=== PATIENT | male | born 1980 | race Caucasian/White ===

== ENCOUNTER 2018-11-23 17:50 | Inpatient (IN) | payer OTHER ==
[~2018-11-23] VITALS: Ht 180.3 cm; Wt 90.3 kg
[2018-11-23 18:28] VITALS: BP 136/84
[2018-11-23 19:30] LABS: ABSOLUTE NEUTROPHILS 4.1 thou/uL (1.4-8.2); BASOPHILS 1.9 % (0.0-2.0); EOSINOPHILS 1.4 % (0.0-3.0); HEMATOCRIT 40.2 % (42.0-52.0); HEMOGLOBIN 14.1 gm/dL (14.0-18.0); MCH 32.5 pg (26.0-34.0); MCV 92.8 fL (80.0-100.0); MONOCYTES 5.4 % (1.0-8.0); POLYS 72.3 % (36.0-66.0); RBC 4.33 mil/uL (4.50-6.00); WBC 5.7 thou/uL (4.0-11.0)
[2018-11-23 19:35] LABS: CREATININE 0.8 mg/dL (0.7-1.3); POTASSIUM 3.8 mmol/L (3.5-5.1)
[2018-11-23 19:40] LABS: APTT 32.6 Seconds (24.5-32.8); INR 1.3; PROTIME 13.8 Seconds (9.3-11.4)
[2018-11-23 19:41] LABS: ALBUMIN 3.5 g/dL (3.4-5.0); DIRECT BILIRUBIN 2.5 mg/dL (<0.1-0.3); MAGNESIUM 1.5 mg/dL (1.8-2.4); PHOSPHORUS 3.1 mg/dL (2.5-4.9); TOTAL BILIRUBIN 4.1 mg/dL (<0.1-1.0); TOTAL PROTEIN 8.5 g/dL (6.4-8.2)
[2018-11-23 19:49] LABS: PLATELET COUNT 68 thou/uL (150-400)
[2018-11-23 20:21] VITALS: BP 116/72
[2018-11-23 20:50] VITALS: BP 111/63
[2018-11-23 21:14] VITALS: BP 135/78
[2018-11-24 03:36] LABS: HEMATOCRIT 36.2 % (42.0-52.0); HEMOGLOBIN 12.7 gm/dL (14.0-18.0)
[2018-11-24 04:20] VITALS: BP 111/54
--- NOTE | 2018-11-24 07:57 | EKG ---
[address] [place] [address] ELECTROCARDIOGRAM REPORT Name: ARTI BROWNING Room #: 203-P ADM IN M.R.#: [id number] Admission: 11/23/18 Attend Phys: Travis Harman MD Discharge: Date of : 76 Report #: [id number] THIS REPORT FOR: //name// [facility] ED Test Date: 2018-11-23 Test Time: 19:06:30 Pat Name: ARTI BROWNING Department: Room: 203 Gender: M Epic Professional[facility] 1980 Requested By: Berlin Alvarez Order Number: [id number] MD: Declan Bender Measurements Intervals [place] Rate: 108 P: 66 RI: 157 QRS: -14 QRSD: 115 T: 51 QT: 354 QTc: 475 Interpretive Statements Sinus tachycardia Incomplete right bundle branch block Baseline wander in lead(s) V5,V6 No previous ECG available for comparison Electronically Signed On 11-24-2018 7:57:37 CDT by Declan Bender [email or web address] <ELECTRONICALLY SIGNED> By: Declan Bender MD, [facility] 11/24/18 0757 05 05 Declan Bender MD, [facility] /EPI
[2018-11-24 08:05] VITALS: BP 125/79
[2018-11-24 11:58] VITALS: BP 114/71
[2018-11-24 12:07] LABS: HEMOGLOBIN 12.8 gm/dL (14.0-18.0)
[2018-11-24 12:09] LABS: HEMATOCRIT 36.6 % (42.0-52.0)
[2018-11-24 12:19] LABS: % SATURATION 81 % (20-39); IRON 234 ug/dL (65-175); TIBC 290 ug/dL (250-450)
[2018-11-24 15:52] VITALS: BP 126/77
[2018-11-24 17:58] LABS: HEMATOCRIT 34.5 % (42.0-52.0)
[2018-11-24 20:06] LABS: IgG 1772 mg/dL (700-1600)
[2018-11-24 20:45] VITALS: BP 122/78
[2018-11-24 23:48] LABS: HEMOGLOBIN 11.9 gm/dL (14.0-18.0)
[2018-11-24 23:50] LABS: HEMATOCRIT 33.6 % (42.0-52.0)
[2018-11-25] VITALS (26 sets, daily range): BP systolic 101–130; BP diastolic 49–85
[2018-11-25 06:18] LABS: HEMOGLOBIN 11.7 gm/dL (14.0-18.0); WBC 4.2 thou/uL (4.0-11.0)
[2018-11-25 06:20] LABS: HEMATOCRIT 33.6 % (42.0-52.0); MCH 32.5 pg (26.0-34.0); MCHC 34.7 g/dL (28.0-37.0); MCV 93.7 fL (80.0-100.0); RBC 3.59 mil/uL (4.50-6.00); RDW 14.9 % (10.5-14.5)
[2018-11-25 06:31] LABS: CREATININE 0.9 mg/dL (0.7-1.3); POTASSIUM 3.4 mmol/L (3.5-5.1)
[2018-11-25 10:11] LABS: HAV IgM AB (ANTI-HAV IgM) Negative (Negative); HEPATITIS B SURFACE AG Negative (Negative); HEPATITIS C VIRUS AB <0.1 (0.0-0.9)
[2018-11-25 12:38] LABS: HEMATOCRIT 31.5 % (42.0-52.0)
[2018-11-25 16:34] LABS: HEMATOCRIT 30.8 % (42.0-52.0); HEMOGLOBIN 10.7 gm/dL (14.0-18.0); MCH 32.8 pg (26.0-34.0); MCHC 34.8 g/dL (28.0-37.0); MCV 94.1 fL (80.0-100.0); RBC 3.28 mil/uL (4.50-6.00); RDW 14.8 % (10.5-14.5); WBC 3.8 thou/uL (4.0-11.0)
[2018-11-25 16:42] LABS: APTT 32.3 Seconds (24.5-32.8); FIBRINOGEN 273.7 mg/dL (210-360)
[2018-11-26] VITALS (28 sets, daily range): BP systolic 90–130; BP diastolic 46–83
[2018-11-26 00:07] LABS: CERULOPLASMIN 21.3 mg/dL (16.0-31.0)
[2018-11-26 03:19] LABS: HEMATOCRIT 29.8 % (42.0-52.0); HEMOGLOBIN 10.5 gm/dL (14.0-18.0); MCH 32.9 pg (26.0-34.0); MCHC 35.2 g/dL (28.0-37.0); MCV 93.7 fL (80.0-100.0); RBC 3.18 mil/uL (4.50-6.00); RDW 14.3 % (10.5-14.5); WBC 4.2 thou/uL (4.0-11.0)
[2018-11-26 03:26] LABS: CALCIUM 8.6 mg/dL (8.5-10.1); CREATININE 0.9 mg/dL (0.7-1.3); POTASSIUM 4.1 mmol/L (3.5-5.1)
[2018-11-26 10:10] LABS: ANA INTERPRETATION Negative (Negative)
[2018-11-27] VITALS (18 sets, daily range): BP systolic 90–119; BP diastolic 32–67
[2018-11-27 04:08] LABS: HEMATOCRIT 29.6 % (42.0-52.0); HEMOGLOBIN 10.3 gm/dL (14.0-18.0); MCH 33.1 pg (26.0-34.0); MCHC 34.7 g/dL (28.0-37.0); MCV 95.3 fL (80.0-100.0); RBC 3.1 mil/uL (4.50-6.00); WBC 4.2 thou/uL (4.0-11.0)
[2018-11-27 04:12] LABS: INR 1.4; PROTIME 14.7 Seconds (9.3-11.4)
[2018-11-27 04:22] LABS: ALBUMIN 2.9 g/dL (3.4-5.0); CALCIUM 8.8 mg/dL (8.5-10.1); CREATININE 0.9 mg/dL (0.7-1.3); POTASSIUM 3.7 mmol/L (3.5-5.1); TOTAL BILIRUBIN 3.5 mg/dL (<0.1-1.0); TOTAL PROTEIN 6.8 g/dL (6.4-8.2)
--- NOTE | 2018-11-27 08:35 | EKG ---
[address] [address] ELECTROCARDIOGRAM REPORT Name: ARTI BROWNING Room #: 242-P ADM IN M.R.#: [id number] Admission: 11/23/18 Attend Phys: Travis Harman MD Discharge: Date of : 76 Report #: [id number] THIS REPORT FOR: //name// [facility] Test Date: 2018-11-26 Test Time: 14:23:32 Pat Name: ARTI BROWNING Department: Room: 242 P Gender: M Bottle Label Inspector: Arleen HARRIS : 1980 Requested By: Travis Harman Order Number: [id number] MD: Elias Mackey Measurements Intervals [place] Rate: 90 P: 52 AR: 150 QRS: -8 QRSD: 121 T: 16 QT: 364 QTc: 446 Interpretive Statements Sinus rhythm Nonspecific intraventricular conduction delay Compared to ECG 11/23/2018 19:06:30 Intraventricular conduction delay now present Sinus tachycardia no longer present Incomplete right bundle-branch block no longer present Electronically Signed On 11-27-2018 8:35:29 CDT by Elias Mackey [email or web address] <ELECTRONICALLY SIGNED> By: Elias Mackey MD 11/27/18 0835 1423 1423 Elias Mackey MD /EPI
[2018-11-27] MEDS ORDERED: PROTONIX 20 MG20 M1 PO (12:16)
--- NOTE | 2018-11-28 08:56 | O ---
[facility] [place] [address] OPERATIVE REPORT Name: ARTI BROWNING Room #: 242-P [facility] IN M.R.#: [id number] Admission: 11/23/18 Attend Phys: Travis Harman MD Discharge: 11/27/18 Date of : 76 Report #: [id number] THIS REPORT FOR: //name// CC: GARCÍA physician/PCP Travis Harman DATE OF SERVICE: 11/25/2018 PROCEDURE NOTE: The right naris was anesthetized with Pontocaine topical anesthesia. The flexible nasopharyngeal scope was advanced through the nares into the nasopharynx, oropharynx, and upper hypopharynx. It was then withdrawn after viewing structures. The nasal cavity was unremarkable. There was no active bleeding noted within the naris or the nasopharynx. The nasopharyngeal mucosa was unremarkable. The lateral and posterior pharyngeal trujillo are unremarkable. Base of tongue, vallecula, surfaces of the epiglottis, piriform sinuses, post-cricoid area were all unremarkable. True vocal cords were normal and moved normally. Only bleeding was noted was dripping down from the oral cavity. The scope was withdrawn. The patient tolerated the procedure well. <ELECTRONICALLY SIGNED> By: Eugene Wall MD 11/28/18 0856 1347 2252 Eugene Wall MD /nt
--- NOTE | 2018-11-28 08:56 | HC ---
[facility] [place] [address] CONSULTATION Name: ARTI BROWNING Room #: 242-P [facility] IN M.R.#: [id number] Admission: 11/23/18 Attend Phys: Travis Harman MD Discharge: 11/27/18 Date of : 76 Report #: [id number] THIS REPORT FOR: //name// CC: GARCÍA physician/PCP Travis Harman DATE OF SERVICE: 11/25/2018 REASON FOR CONSULTATION: Oral bleeding. HISTORY OF PRESENT ILLNESS: The patient is a 38-year-old male who presented to the Emergency Department on 11/23 for spontaneous bleeding from the gums and tremors secondary to alcohol detoxification attempt. He was admitted to the hospital for admission for detoxification and laboratory care. The patient has not had any substantial oral/dental history. He no longer uses tobacco products. He had significant hematemesis and melanotic stool with elevated liver enzymes. Concern was for alcoholic hepatitis. Also, he was noted to have an elevated INR and thrombocytopenia. An EGD was planned for today to evaluate the esophagus and stomach. EGD procedure noted there was fresh blood in the oral cavity as well as fresh blood in the esophagus, stomach and small bowel; however, there was no active bleeding noted in the upper digestive tract. He had large esophageal varices that were banded and had portal hypertensive gastropathy as well. Because of the ongoing oropharyngeal bleeding, I was consulted. It should be noted the patient denies any history of epistaxis, previous history of dental trauma and any difficulty with controlling oral secretions. PAST MEDICAL HISTORY: Notable for alcohol withdrawal. ALLERGIES: He has no known allergies to medication. LABORATORY DATA: Admitting laboratory tests showed a slightly elevated INR. Hemoglobin was 14.1, hematocrit of 40.2, platelet count was 68,000 on admission. PAST SURGICAL HISTORY: Otherwise, unremarkable aside from excessive alcohol use. PHYSICAL EXAMINATION: I examined in the ICU in a semi-reclining position. There was fresh blood on his lips. Nasal cannula was intact. Examination of the remainder of the head was unremarkable. Hairs were unremarkable. Anterior nares reveal a moderately deviated nasal septum. Nasal mucosa was dry; however, there were no blood clots noted. Oral cavity revealed multiple hemorrhaging spots from the gingiva throughout the upper and lower gingiva on the buccal surfaces mostly. There was some clotting taking place. There were some hematomas located on the buccal mucosa as well. The floor of mouth and the ventral and dorsal surface and lateral surface of the tongue were unremarkable. [address] [address] CONSULTATION Name: ARTI BROWNING Room #: 242-P [facility] IN [facility]#: [id number] Admission: 11/23/18 Attend Phys: Travis Harman MD Discharge: 11/27/18 Date of : 76 Report #: [id number] The oropharynx appears unremarkable for any active bleeding. Neck palpates unremarkably. Flexible nasopharyngoscopy was performed after anesthetizing the right naris. See separate procedure report. ASSESSMENT: 1. History of oral bleeding from continued gingival bleeding secondary to thrombocytopenia. 2. Alcohol withdrawal. 3. Esophageal varices. 4. Elevated liver function tests. RECOMMENDATIONS: Would recommend correcting for the coagulopathy with platelet counts trying to keep platelet counts greater than 100,000 if possible, expect spontaneous gingival bleeding to persist until that is achieved (it should be noted platelet count today is 41,000). The hospital does not carry tranexamic acid solution, which can be used to stop gingival and oral bleeding. Unfortunately, there is no known substitute in place of this. He should be using some general oral care, which would include the Peridex or chlorhexidine rinses, 50 mL 3 times a day to promote better oral hygiene and promote healing of the gingival lesions. Post-hospitalization followup with a dentist or an oral surgeon to improve oral health would be beneficial. I did reach out to his hospitalist but was unable to reach them today to discuss my conclusions. I will follow along loosely with you. <ELECTRONICALLY SIGNED> By: Eugene Wall MD 11/28/18 0856 1347 2241 Eugene Wall MD /nt
== END 2018-11-27 15:30 | disposition home or self-care (01) | DRG 157 ==
LOC: ER 17:50 → 2N 19:59 → EROBS 19:59 → 2N 20:59 → ICU 11-25 11:12
PROVIDERS: Emergency Medicine; Hospitalist; Internal Medicine Hematology & Oncology; Nurse Practitioner; Nurse Practitioner Acute Care; ADMIT Hospitalist
PROC: 30233R1 Transfusion of Nonautologous Platelets into Peripheral Vein, Percutaneous Approach (ICD-10-PCS; principal; 2018-11-25)
PROC: 06L38CZ Occlusion of Esophageal Vein with Extraluminal Device, Via Natural or Artificial Opening Endoscopic (ICD-10-PCS; principal; 2018-11-25)
DX: K06.8 Other specified disorders of gingiva and edentulous alveolar ridge (principal); I85.01 Esophageal varices with bleeding; D62 Acute posthemorrhagic anemia; K76.6 Portal hypertension; K92.0 Hematemesis; E83.42 Hypomagnesemia; F10.10 Alcohol abuse, uncomplicated; D69.6 Thrombocytopenia, unspecified; K70.9 Alcoholic liver disease, unspecified; T50.995A Adverse effect of other drugs, medicaments and biological substances, initial encounter; T51.0X1A Toxic effect of ethanol, accidental (unintentional), initial encounter; K74.60 Unspecified cirrhosis of liver; J39.2 Other diseases of pharynx; Y92.89 Other specified places as the place of occurrence of the external cause; Z87.891 Personal history of nicotine dependence; Z79.899 Other long term (current) drug therapy
CPT/HCPCS: 10078; 10081; 62110; 62900; 70005; 85076

== ENCOUNTER 2019-04-07 17:53 | Emergency (ER) | payer MEDICAID ==
[~2019-04-07] VITALS: Ht 180.3 cm; Wt 85.7 kg
[~2019-04-07 17:53] MED LIST: PROTONIX 20 MG20 M1 PO
[2019-04-07 20:55] LABS: ABSOLUTE NEUTROPHILS 3.7 thou/uL (1.4-8.2); BASOPHILS 3.2 % (0.0-2.0); EOSINOPHILS 2.7 % (0.0-3.0); LYMPHOCYTES 32.3 % (24.0-44.0); MCH 29.9 pg (26.0-34.0); MCHC 33.3 g/dL (28.0-37.0); MONOCYTES 5.2 % (1.0-8.0); PLATELET COUNT 118 thou/uL (150-400); POLYS 56.6 % (36.0-66.0); RBC 4.33 mil/uL (4.50-6.00); RDW 15.9 % (10.5-14.5); WBC 6.5 thou/uL (4.0-11.0)
[2019-04-07 21:09] LABS: CALCIUM 8.9 mg/dL (8.5-10.1); CREATININE 0.8 mg/dL (0.7-1.3); POTASSIUM 3.6 mmol/L (3.5-5.1)
[2019-04-07 21:15] LABS: ALBUMIN 3.6 g/dL (3.4-5.0); DIRECT BILIRUBIN 1.8 mg/dL (<0.1-0.2); MAGNESIUM 1.9 mg/dL (1.8-2.4); PHOSPHORUS 4.2 mg/dL (2.5-4.9); TOTAL BILIRUBIN 2.8 mg/dL (<0.1-1.0)
[2019-04-07] MEDS ORDERED: CHLORDIAZEPOXID25 M1 PO (23:46)
[2019-04-07] MEDS ORDERED: PHENERGAN 25 MG25 M1 PO (23:46)
[2019-04-08 00:03] VITALS: BP 118/64
== END 2019-04-08 00:04 | disposition home or self-care (01) ==
LOC: ER 17:53
PROVIDERS: Emergency Medicine
DX: F10.10 Alcohol abuse, uncomplicated (principal); F17.210 Nicotine dependence, cigarettes, uncomplicated

== ENCOUNTER 2020-06-28 20:54 | Inpatient (IN) | payer MEDICAID ==
[~2020-06-28] VITALS: Ht 180.3 cm; Wt 80.7 kg
[~2020-06-28 20:54] MED LIST changes: +CHLORDIAZEPOXID25 M1 PO; +PHENERGAN 25 MG25 M1 PO
[2020-06-28 21:10] VITALS: BP 121/71
[2020-06-28 21:56] LABS: HEMOGLOBIN 12.6 gm/dL (14.0-18.0); RDW 22.1 % (10.5-14.5)
[2020-06-28 21:56] LABS: URINE BILIRUBIN 3+ (Negative); URINE BLOOD 2+ (Negative); URINE CLARITY SL CLOUDY; URINE COLOR BROWN; URINE GLUCOSE-RANDOM* TRACE (Negative); URINE KETONES 2+ (Negative); URINE LEUKOCYTES-REFLEX NEGATIVE (Negative); URINE PROTEIN (DIPSTICK) 2+ (Negative); URINE UROBILINOGEN >= 8.0 E.U./dl (0.2-1.0)
[2020-06-28 21:58] LABS: ABSOLUTE NEUTROPHILS 2.3 thou/uL (1.4-8.2); BASOPHILS 1.7 % (0.0-2.0); EOSINOPHILS 1.4 % (0.0-3.0); HEMATOCRIT 37.2 % (42.0-52.0); LYMPHOCYTES 13.3 % (24.0-44.0); MCH 32.6 pg (26.0-34.0); MCHC 33.9 g/dL (28.0-37.0); MCV 96.1 fL (80.0-100.0); MONOCYTES 15.4 % (1.0-8.0); PLATELET COUNT 42 thou/uL (150-400); POLYS 68.2 % (36.0-66.0); RBC 3.87 mil/uL (4.50-6.00); WBC 3.4 thou/uL (4.0-11.0)
[2020-06-28 22:01] LABS: URINE NITRITE-REFLEX POSITIVE (Negative)
[2020-06-28 22:05] LABS: ICTOTEST (BILI CONFIRMATORY) Positive (Negative)
[2020-06-28 22:11] LABS: ANION GAP 14 mmol/L (7-16); BUN 3 mg/dL (7-18); CALCIUM 8.8 mg/dL (8.5-10.1); CHLORIDE 93 mmol/L (98-107); CO2 27 mmol/L (21-32); CREATININE 0.9 mg/dL (0.7-1.3); GLUCOSE 115 mg/dL (74-106); LIPASE 310 U/L (73-393); POTASSIUM 2.7 mmol/L (3.5-5.1); SGOT 226 U/L (15-37); SGPT 55 U/L (16-63); SODIUM 134 mmol/L (136-145); TOTAL BILIRUBIN 13.8 mg/dL (0.2-1.0); TOTAL PROTEIN 8.1 g/dL (6.4-8.2)
[2020-06-28 22:12] LABS: SALICYLATE < 2.0 mg/dL (2.8-20.0)
[2020-06-28 22:14] LABS: APTT 30.1 Seconds (24.5-32.8); INR 1.59
[2020-06-28 22:17] LABS: CASTS None Seen /LPF (None Seen); MUCUS 4-6 Moderate strn/LPF (None Seen); SQUAMOUS None Seen /LPF (0-3)
[2020-06-28 22:18] LABS: URINE RBC 3-10 Few /HPF (0-2); URINE WBC-REFLEX 0-5 Rare /HPF (0-5)
[2020-06-28 22:19] LABS: CRYSTALS None Seen /LPF (None Seen)
[2020-06-28 22:27] LABS: AMP/METHAMP Negative (Negative); BARBITURATES Negative (Negative); BENZODIAZEPINES POSITIVE (Negative); COCAINE Negative (Negative); METHADONE Negative (Negative); OPIATES Negative (Negative); PCP Negative (Negative)
[2020-06-28 23:07] VITALS: BP 121/71
[2020-06-29] VITALS (15 sets, daily range): BP systolic 90–122; BP diastolic 52–79
--- NOTE | 2020-06-29 01:57 | NUR ---
PATIENT IS A NEW ADMISSION TO THE UNIT THIS SHIFT. HE ARRIVED VIA CART FROM THE ER AND WAS ABLE TO AMBULATE TO THE BED WITH ASSISTANCE INCIDENT FREE. PATIENT IS ALERT AND ORIENTED AND ABLE TO PARTICIPATE IN ADMISSION. INITIAL CIWA SCORED AT FOUR PRIMARILY FOR MILD TREMOR AND NAUSEA. PATIENT WAS TEARFUL AND STATED MULTIPLE TIMES THAT HE "WANTS TO QUIT DRINKING." PATIENT IS NORMAL SINUS RHYTHM ON THE MONITOR WITH NO DIFFICULTIES BREATHING EVIDENCED BY ASSESSMENT AND OXYGEN SATURATION ON ADMISSION. PATIENT CONSIDERED A HIGH FALL RISK WITH NURSE TAKING ALL PRECAUTIONS. NURSE TO COMPLETE ADMISSION AND INITIATE PLAN OF CARE.
[2020-06-29 05:10] LABS: ALBUMIN 2.5 g/dL (3.4-5.0); CREATININE 0.9 mg/dL (0.7-1.3); TOTAL BILIRUBIN 11.7 mg/dL (0.2-1.0); TOTAL PROTEIN 6.6 g/dL (6.4-8.2)
[2020-06-29 05:25] LABS: WBC 2.5 thou/uL (4.0-11.0)
[2020-06-29 05:27] LABS: POTASSIUM 2.9 mmol/L (3.5-5.1)
[2020-06-29 05:33] LABS: HEMATOCRIT 32.2 % (42.0-52.0); HEMOGLOBIN 10.9 gm/dL (14.0-18.0); MCH 32.7 pg (26.0-34.0); MCHC 33.8 g/dL (28.0-37.0); MCV 96.8 fL (80.0-100.0); PLATELET COUNT 33 thou/uL (150-400); RBC 3.32 mil/uL (4.50-6.00); RDW 21.9 % (10.5-14.5)
--- NOTE | 2020-06-29 07:41 | EKG ---
[address] [employer] [place] [address] ELECTROCARDIOGRAM REPORT Name: ARTI BROWNING Room #: 204-P ADM IN M.R.#: [id number] Admission: 06/28/20 Attend Phys: Pieter Moore Discharge: Date of : 76 Report #: [id number] [facility] ED Test Date: 2020-06-28 Test Time: 21:57:29 Pat Name: ARTI BROWNING Department: Room: 204 Gender: M Flux Tube Attendant: molly : 1980 Requested By: Javier Rodriguez Order Number: [id number] MD: Cm Dougherty Measurements Intervals [place] Rate: 95 P: 46 WI: 170 QRS: -19 QRSD: 130 T: 53 QT: 381 QTc: 479 Interpretive Statements Sinus rhythm Nonspecific intraventricular conduction delay Borderline ST depression, anterolateral leads Compared to ECG 11/26/2018 14:23:32 ST (T wave) deviation now present Electronically Signed On 06-29-2020 7:41:33 CDT by Cm Dougherty [email or web address] <ELECTRONICALLY SIGNED> By: Cm Dougherty MD, [facility] 06/29/20 0741 56 56 Cm Dougherty MD, FACC /EPI
--- NOTE | 2020-06-29 08:53 | NUR ---
ASSUMED PT CARE AT 0700. PT RESTING AT THIS TIME. ASSESSMENT PERFORMED. DR SCHAEFFER CAME TO VISIT PATIENT. STATES HE WILL BE TRANSFERRING TO THE ICU AND WOULD LIKE TO TALK TO THE FIANCE AND THE PATIENT TODAY. THE PATIENT CONTACTED THE ANCE AND THE ANCE STATES SHE WILL BE HERE LATER IN THE MORNING. VSS. WILL CONTINUE TO MONITOR.
--- NOTE | 2020-06-29 09:32 | NUR ---
CALLED REPORT TO MAMTA IN ICU. PT WILL BE TRANSFERRING TO ROOM 236.
[2020-06-29 11:27] LABS: ABSOLUTE NEUTROPHILS 1.6 thou/uL (1.4-8.2); NUCLEATED RBCS 1 /100WBC
[2020-06-29 11:29] LABS: ANISOCYTOSIS 1+; HYPOCHROMASIA SLIGHT; PLATELET ESTIMATE MARKEDLY DECREASED; POIKILOCYTOSIS SLIGHT
--- NOTE | 2020-06-29 12:50 | NUR ---
PATIENT ARRIVED IN ICU AT 1020. PATIENT ACCOMPANIED BY AND BELONGINGS.
[2020-06-30] VITALS (15 sets, daily range): BP systolic 88–111; BP diastolic 51–75
[2020-06-30 05:38] LABS: INR 1.64; PROTIME 17.5 Seconds (9.3-11.4)
[2020-06-30 05:44] LABS: HEMATOCRIT 34.7 % (42.0-52.0); HEMOGLOBIN 11.5 gm/dL (14.0-18.0)
[2020-06-30 05:56] LABS: ALBUMIN 2.4 g/dL (3.4-5.0); CALCIUM 7.4 mg/dL (8.5-10.1); CREATININE 0.9 mg/dL (0.7-1.3); POTASSIUM 3.6 mmol/L (3.5-5.1); TOTAL BILIRUBIN 12.5 mg/dL (0.2-1.0); TOTAL PROTEIN 6.6 g/dL (6.4-8.2)
--- NOTE | 2020-06-30 13:05 | NUR ---
chart review. discussed during los. gi consulted and going to scope today. cm unable to visit ricardo rt out off room. cm called sig other amena # [phone] , no answer, left message requesting call back. possible needs for ethol abuse. noted in chart resources have been provided to him on past admission.
[2020-07-01] VITALS (20 sets, daily range): BP systolic 95–116; BP diastolic 52–79
[2020-07-01 05:21] LABS: HEMOGLOBIN 11.1 gm/dL (14.0-18.0); WBC 2.7 thou/uL (4.0-11.0)
[2020-07-01 05:22] LABS: HEMATOCRIT 33.5 % (42.0-52.0); MCH 32.8 pg (26.0-34.0); MCHC 33.1 g/dL (28.0-37.0); RBC 3.38 mil/uL (4.50-6.00); RDW 22.2 % (10.5-14.5)
[2020-07-01 05:37] LABS: ALBUMIN 2.2 g/dL (3.4-5.0); CALCIUM 7.2 mg/dL (8.5-10.1); CREATININE 0.8 mg/dL (0.7-1.3); MAGNESIUM 1.3 mg/dL (1.8-2.4); POTASSIUM 3.5 mmol/L (3.5-5.1); TOTAL PROTEIN 6.3 g/dL (6.4-8.2)
[2020-07-01 10:40] LABS: CALCIUM 7.4 mg/dL (8.5-10.1); CREATININE 0.9 mg/dL (0.7-1.3); MAGNESIUM 1.4 mg/dL (1.8-2.4); POTASSIUM 3.5 mmol/L (3.5-5.1)
--- NOTE | 2020-07-01 12:26 | NUR ---
chart review. discussed during los, possible transfer out of icu. cm provided list of resources on his dc paper work for when he is dc home. cm called amena again, left message, no call back. Resources, [facility], [facility], [facility], [facility], [facility], [facility], [facility] [place] [facility] and [facility]. dcp home with
--- NOTE | 2020-07-01 15:09 | NUR ---
FAXED CLINICAL UPDATES AND NEGATIVE COVID RESULT (06/29) TO NICOLA[facility]REGGIE. NICOLA/REGG[facility] P [phone]; FAX [phone]
--- NOTE | 2020-07-01 18:10 | NUR ---
ASSUMED PATIENT CARE AT 0700. OXYGEN WEANED TO 2L VIA NC. IV MEDICATIONS STOPPED PER ORDERS. PATIENT DID NOT REQUIRE ANY PRN MEDICATIONS PER [facility] PROTOCOL. CHEST XR COMPLETED D/T REPORT OF EPIGASTRIC PAIN. DIET ADVANCED, POOR APPETITE. PATIENT UPDATING BY PERSONAL PHONE. WILL CONTINUE TO MONITOR.
[2020-07-02 03:19] LABS: HEMATOCRIT 35.5 % (42.0-52.0); HEMOGLOBIN 11.6 gm/dL (14.0-18.0); MCH 32.5 pg (26.0-34.0); MCHC 32.6 g/dL (28.0-37.0); MCV 99.4 fL (80.0-100.0); RBC 3.57 mil/uL (4.50-6.00); RDW 21.6 % (10.5-14.5); WBC 3.3 thou/uL (4.0-11.0)
[2020-07-02 03:25] LABS: INR 1.8; PROTIME 19.1 Seconds (9.3-11.4)
--- NOTE | 2020-07-02 03:48 | NUR ---
Pt was a transfer from ICU. Pt is stable upon transfer. No sign of distress noted in pt. Pt denies pain at the moment. Pt is stable upon arrival to the floor. No acute events noted. Black tarry stools noted with bowel movement. Denies any pain. no acute events overnight. Continue to monitor. No further needs at this time.
[2020-07-02 04:04] LABS: ALBUMIN 2.3 g/dL (3.4-5.0); CALCIUM 7.9 mg/dL (8.5-10.1); CREATININE 0.8 mg/dL (0.7-1.3); PHOSPHORUS 1.2 mg/dL (2.6-4.7); POTASSIUM 3.7 mmol/L (3.5-5.1)
[2020-07-02 04:16] LABS: ALBUMIN 2.3 g/dL (3.4-5.0); DIRECT BILIRUBIN 12.9 mg/dL (<0.1-0.2); TOTAL PROTEIN 6.5 g/dL (6.4-8.2)
[2020-07-02 04:22] LABS: TOTAL BILIRUBIN 16.5 mg/dL (0.2-1.0)
[2020-07-02 05:36] VITALS: BP 107/72
[2020-07-02 07:30] VITALS: BP 108/66
[2020-07-02 11:29] VITALS: BP 101/60
[2020-07-02 15:04] VITALS: BP 115/69
--- NOTE | 2020-07-02 16:31 | NUR ---
CT REPORT CALLED TO DR BRISCOE WITH G.I.
[2020-07-02 19:20] VITALS: BP 98/59
[2020-07-03] VITALS (8 sets, daily range): BP systolic 89–108; BP diastolic 52–70
[2020-07-03 03:38] LABS: INR 1.98; PROTIME 20.9 Seconds (9.3-11.4)
[2020-07-03 03:49] LABS: ALBUMIN 2.2 g/dL (3.4-5.0); CALCIUM 8.5 mg/dL (8.5-10.1); CREATININE 0.8 mg/dL (0.7-1.3); MAGNESIUM 1.8 mg/dL (1.8-2.4); POTASSIUM 3.5 mmol/L (3.5-5.1); TOTAL PROTEIN 6.3 g/dL (6.4-8.2)
[2020-07-03 03:51] LABS: TOTAL BILIRUBIN 18.2 mg/dL (0.2-1.0)
--- NOTE | 2020-07-03 07:26 | NUR ---
ASSESSMENTS CHARTED, MEDS CHARTED GIVEN. PATIENT RESTING IN BED DURING SHIFT. C/O PAIN WITH MOVEMENT 10/10, BUT WHEN STILL 2/10. PATIENT IS GETTING LACTOLOSE TO BRING DOWN HIS AMMONIA LEVEL. PATIENT WAS REEDUCATED TO WHY HE NEEDED TO GET IT. HE HATES THAT HE IS INCONTINENT OF BOWEL. JAUNDICE. PLAN IS TO AVOLID NARCOTICS, CONSIDER STEROIDS, DETOX AND AA. FALL PRECAUTIONS IN PLACE DURING SHIFT.
--- NOTE | 2020-07-03 16:29 | NUR ---
PT CARE ASSUMED AT 0700. ASSESSMENTS CHARTED. MEDICATIONS CHARTED. LAC IV. RFA IV. SINUS RHYTHM. BSC/URINAL. JAUNDICE. ESOPHAGEAL VARICES, BANDED. ESLD.
--- NOTE | 2020-07-04 03:08 | NUR ---
ASSESSMENTS CHARTED, MEDS CHARTED GIVEN. PATIENT RESTING IN BED DURING SHIFT. STATES PAIN LEVELS ARE GETTING BETTER. IT HURTS LESS TO MOVE. CONTINUING ON ANTIBIOTIC THERAPY. PLAN OF CARE IS TO CONTINUE TO AGGRESSIVE THERAPY AND HAVE PATIENT CONTINUE TO DETOX AND START AA. FALL PRECAUTIONS IN PLACE DURING SHIFT.
[2020-07-04 03:29] LABS: ALBUMIN 2.1 g/dL (3.4-5.0); CALCIUM 8.3 mg/dL (8.5-10.1); CREATININE 0.9 mg/dL (0.7-1.3); POTASSIUM 3.5 mmol/L (3.5-5.1); TOTAL BILIRUBIN 18.7 mg/dL (0.2-1.0); TOTAL PROTEIN 6.3 g/dL (6.4-8.2)
[2020-07-04 04:15] VITALS: BP 92/60
[2020-07-04 08:04] VITALS: BP 101/65
[2020-07-04 11:26] VITALS: BP 100/67
[2020-07-04 15:46] VITALS: BP 99/61
--- NOTE | 2020-07-04 16:06 | PATH ---
[facility] [address] [place] [address] PATHOLOGY RPT PROCEDURE Name: ARTI LOJA Room #: 208-P ADM IN M.R.#: [id number] Admission: 06/28/20 Date of : 76 Discharge: Report #: [id number] Path Case #: [id number] [facility] Accession Number: [id number] . 01 Material submitted: . stomach - BIOPSY OF GASTRITIS . 01 Clinical history: . MELENE . R/O H.PYLORI . 02 Diagnosis: Gastric mucosa, gastritis rule out H. pylori, endoscopic biopsy: - Mild chronic gastritis with features of reactive gastropathy. - Negative for intestinal metaplasia or atrophy. - Negative for Helicobacter pylori (properly controlled immunohistochemical stain performed). (IUV/db; 07/04/2020) LBQ 07/04/2020 1408 Local . 02 Electronically signed: . Jessenia Boles MD, Pathologist NPI- [id number] . 01 Gross description: . Received in formalin labeled "Arti Loja, biopsy of gastritis rule H. pylori" is a fragment of nogueira-brown soft tissue measuring 0.7 x 0.4 x 0.3 cm. The specimen is submitted entirely in A1. ([facility]; 07/01/2020) . . GZA/GZA 07/01/2020 1107 Local . 02 Pathologist provided ICD-10: K29.50 . 02 CPT . 540990, [id number] Specimen Comment: A courtesy copy of this report has been sent to [phone] Specimen Comment: 2007 Specimen Comment: Report sent to / DR BECERRA Performed at: [address] [id number] MD Raza Womack MD Phone: [phone] Performed at: [address] [address] PATHOLOGY RPT PROCEDURE Name: ARTI LOJA Room #: 208-P [facility] IN ..#: [id number] Admission: 06/28/20 Date of : 76 Discharge: Report #: [id number] Path Case #: [id number] [address] [id number] MD Jessenia Boles MD Phone: [phone]
--- NOTE | 2020-07-04 18:33 | NUR ---
ASSUMED CARE OF PT AT SHIFT CHANGE. ASSESSMENTS CHARTED. MEDS GIVEN PER MAY. PT A&OX4, NO C/O PAIN OR DISTRESS. AT BEDSIDE IN AFTERNOON, COUPLE TALKED TO DR WITH QUESTIONS. WILL CONTINUE TO MONITOR FOR CHANGES AND FOLLOW POC.
[2020-07-04 20:15] VITALS: BP 101/65
--- NOTE | 2020-07-05 01:49 | NUR ---
ASSESSMENTS CHARTED, MEDS CHARTED GIVEN. PATIENT REFUSED THE LACTOLOSE. STATED THAT HE WANTS TO TALK TO THE DOCTOR ABOUT HOW NECESSARY IT IS IF HE IS ONLY GOING TO LIVE 3 MONTHS. DOCTOR STATED HIS PLAN IS TO GO HOME ON HOSPICE. FALL PRECAUTIONS IN PLACE DURING SHIFT.
[2020-07-05 04:45] VITALS: BP 93/60
[2020-07-05 04:55] LABS: HEMATOCRIT 35.1 % (42.0-52.0); HEMOGLOBIN 11.7 gm/dL (14.0-18.0); MCH 33.4 pg (26.0-34.0); MCHC 33.5 g/dL (28.0-37.0); MCV 99.8 fL (80.0-100.0); RBC 3.51 mil/uL (4.50-6.00); RDW 22.3 % (10.5-14.5); WBC 4.2 thou/uL (4.0-11.0)
[2020-07-05 05:23] LABS: ALBUMIN 2.1 g/dL (3.4-5.0); CREATININE 0.9 mg/dL (0.7-1.3); MAGNESIUM 1.9 mg/dL (1.8-2.4); POTASSIUM 3.3 mmol/L (3.5-5.1); TOTAL BILIRUBIN 18.1 mg/dL (0.2-1.0); TOTAL PROTEIN 6.1 g/dL (6.4-8.2)
[2020-07-05 08:00] VITALS: BP 100/59
[2020-07-05 11:32] VITALS: BP 108/65
--- NOTE | 2020-07-05 12:43 | NUR ---
spoke with patient regarding hospice services. He requests caset return today at 1530 when present. He reports she works at [employer] and familiar with hospice agencies.
--- NOTE | 2020-07-05 14:20 | NUR ---
Nutrition: pt admitted with ETOH withdrawal, hemoptysis, melena, ESLD. Hx esophageal varices. Seen for LOS. PO intake variable from 25-90% of meals on 2 gm Na diet. Plan to D/C with hospice ?07/06 per nsg. CM met with pt today and plan additional visit with this afternoon. Pt's door was shut and RD did not disturb pt. Consider low risk with POC considered.
[2020-07-05 15:51] VITALS: BP 116/71
--- NOTE | 2020-07-05 17:02 | NUR ---
FAXED REFERRAL TO HEALTH SYSTEM RECEIVED CONFIRMATION LEFT MSG WITH INTAKE TO CALL GABINO KLINE IF ANY QUESTIONS.
--- NOTE | 2020-07-05 17:58 | NUR ---
RECEIVED PT'S CARE AROUND 0710; PT. ON BED; ALERT; DURING AM ASSESSMENT AOX4; NO C/O PAIN; AM MEDICATIONS GIVEN; REFUSED LATULOSE IN THE AM; ST. "I WILL TALK WITH MY DOCTOR"; PHOTO MASK CLEANER [facility]; EDUCATED ABOUT FALL PRECAUTIONS; [facility]; MIKE SUPERVISOR REACTOR FUELING NOTIFIED ABOUT PT. REFUSING LACTULOSE; NO NEW ORDERS; SR ON THE MONITOR; ASSESSMENT CHARGED; FOLLOWING POC; WILL PASS ON REPORT;
[2020-07-05 20:15] VITALS: BP 99/62
[2020-07-06 04:45] VITALS: BP 91/55
[2020-07-06 05:07] LABS: INR 1.82; PROTIME 19.3 Seconds (9.3-11.4)
[2020-07-06 05:36] LABS: ALBUMIN 2.1 g/dL (3.4-5.0); CALCIUM 8.4 mg/dL (8.5-10.1); CREATININE 0.9 mg/dL (0.7-1.3); POTASSIUM 3.5 mmol/L (3.5-5.1); TOTAL BILIRUBIN 16.8 mg/dL (0.2-1.0); TOTAL PROTEIN 6.4 g/dL (6.4-8.2)
--- NOTE | 2020-07-06 05:40 | NUR ---
ASSESSMENTS CHARTED, MEDS CHARTED GIVEN. PATIENT RESTING IN BED DURING SHIFT. TOOK LACTOLOSE AND WAS INCONTINENT OF BOWEL. PLAN IS FOR PATIENT TO DISCHARGE ON HOSPICE TODAY. FALL PRECAUTIONS IN PLACE DURING SHIFT.
[2020-07-06] MEDS ORDERED: PROPRANOLOL 1010 MG PO (07:55)
[2020-07-06] MEDS ORDERED: ALDACTONE50 MG PO (07:56)
[2020-07-06] MEDS ORDERED: LACTULOSE20 GM/30 M PO (07:56)
[2020-07-06] MEDS ORDERED: VITAMIN B-1100 M2 PO (07:57)
[2020-07-06] MEDS ORDERED: PREDNISONE 20 M20 M1 PO (07:57)
[2020-07-06] MEDS ORDERED: LASIX 40 MG TAB40 M1 PO (07:57)
[2020-07-06] MEDS ORDERED: PROTONIX 20 MG20 M1 PO (07:57)
[2020-07-06 08:00] VITALS: BP 95/60
[2020-07-06] MEDS ORDERED: AUGMENTIN 875-1 EACH PO (08:01)
[2020-07-06] MEDS ORDERED: XANAX 0.5 MG0.5 M1 PO (08:01)
[2020-07-06 11:10] VITALS: BP 88/53
--- NOTE | 2020-07-06 13:14 | NUR ---
RECEIVED PT'S CARE AROUND 0725; PT. ON BED; ALERT; SR ON THE MONITOR; DURING AM ASSESSMENT PT. AOX4; NO C/O PAIN; AM MEDICATIONS GIVEN; REFUSED LACTULOSE; D/C ORDERS ON PLACED; EDUCATED ABOUT D/C PROCESS; [facility] UNDERSTANDING; PT. ST. GET OFF FROM WORK AROUND 1430; ST. WILL BE ABLE TO PICK HIM UP AROUND 1530; [facility]MAN UNDERSTANDING; D/C SET UP AT 1530; MECHANICAL MAINTENANCE SUPERVISOR NOTIFIED; PER MIKE [facility]ANKLIN GI RECOMMEND FOR PT. TO GO TO INPATIENT REHAB TO IMPROVE; ST. NOTIFYING DR. SCHAEFFER; MECHANICAL MAINTENANCE SUPERVISOR AWARE; SBP ON THE 80s; BP MEDICATION HOLD; ASSESSMENT CHARGED; FOLLOWING POC; WILL WORK ON D/C PAPERS;
[2020-07-06 13:20] VITALS: BP 116/77
--- NOTE | 2020-07-06 14:52 | NUR ---
[facility] at [facility]. Left message with Jasson Salguero with patient no preference for hospice agency. Referral to [facility]. THey are no in network with ins. They report [facility] in network. referral to [facility]. Sreedhar sp with Stephany. plan home with hospice. Frank has no PCP jelly maker will follow. Patient to f.u with GI clinic. Orders for lab draws for home via site lead. Sp with Kerri at [facility] who reports can accomadate. to transport home. Orders faxed to [facility]. No further needs.
== END 2020-07-06 15:44 | disposition hospice, home (50) | DRG 432 ==
LOC: ER 20:54 → EROBS 23:10 → ICU 23:10 → 2N 23:10 → ICU 06-29 10:11 → 2N 07-01 21:00
PROVIDERS: Emergency Medicine; Nurse Practitioner; ADMIT Hospitalist; ATTEND Hospitalist
PROC: 0DB68ZX Excision of Stomach, Via Natural or Artificial Opening Endoscopic, Diagnostic (ICD-10-PCS; principal; 2020-06-30)
DX: K70.40 Alcoholic hepatic failure without coma (principal); I85.11 Secondary esophageal varices with bleeding; J18.9 Pneumonia, unspecified organism; R65.11 Systemic inflammatory response syndrome (SIRS) of non-infectious origin with acute organ dysfunction; E43 Unspecified severe protein-calorie malnutrition; K29.81 Duodenitis with bleeding; F10.139 Alcohol abuse with withdrawal, unspecified; N39.0 Urinary tract infection, site not specified; D61.818 Other pancytopenia; K76.6 Portal hypertension; K70.10 Alcoholic hepatitis without ascites; Y90.9 Presence of alcohol in blood, level not specified; K75.89 Other specified inflammatory liver diseases; K29.80 Duodenitis without bleeding; K31.89 Other diseases of stomach and duodenum; F10.129 Alcohol abuse with intoxication, unspecified; E87.6 Hypokalemia; D69.6 Thrombocytopenia, unspecified; Z20.822 Contact with and (suspected) exposure to COVID-19; Z79.899 Other long term (current) drug therapy; Z87.891 Personal history of nicotine dependence
CPT/HCPCS: 10078; 10081; 10203; 62110; 62900; 70005

== ENCOUNTER 2021-01-04 02:25 | Emergency (ER) | payer MEDICAID ==
[~2021-01-04] VITALS: Ht 180.3 cm; Wt 78.0 kg
[~2021-01-04 02:25] MED LIST changes: +ALDACTONE50 MG PO; +AUGMENTIN 875-1 EACH PO; +LACTULOSE20 GM/30 M PO; +LASIX 40 MG TAB40 M1 PO; +PREDNISONE 20 M20 M1 PO; +PROPRANOLOL 1010 MG PO; +VITAMIN B-1100 M2 PO; +XANAX 0.5 MG0.5 M1 PO
[2021-01-04 03:01] LABS: HEMATOCRIT 39.9 % (42.0-52.0); HEMOGLOBIN 13.2 gm/dL (14.0-18.0); MCH 28.1 pg (26.0-34.0); MCV 85.3 fL (80.0-100.0); RBC 4.68 mil/uL (4.50-6.00); RDW 22.8 % (10.5-14.5); WBC 6.9 thou/uL (4.0-11.0)
[2021-01-04] MEDS ORDERED: LIPITOR40 MG PO (03:09)
[2021-01-04] MEDS ORDERED: BACITRACIN ZINC TOP (03:09)
[2021-01-04] MEDS ORDERED: THERA-D50 MCG PO (03:10)
[2021-01-04] MEDS ORDERED: ROWEEPRA500 MG PO (03:11)
[2021-01-04] MEDS ORDERED: OXYCODONE PO (03:12)
[2021-01-04] MEDS ORDERED: PROTONIX40 M4 PO (03:12)
[2021-01-04] MEDS ORDERED: PROPRANOLOL PO (03:14)
[2021-01-04] MEDS ORDERED: XIFAXAN550 M1 PO (03:15)
[2021-01-04] MEDS ORDERED: VITAMIN A PO (03:18)
[2021-01-04 03:28] LABS: ALBUMIN 3.6 g/dL (3.4-5.0); ANION GAP 11 mmol/L (7-16); BUN 8 mg/dL (7-18); CALCIUM 9.6 mg/dL (8.5-10.1); CHLORIDE 100 mmol/L (98-107); CO2 26 mmol/L (21-32); GLUCOSE 107 mg/dL (74-106); MAGNESIUM 1.8 mg/dL (1.8-2.4); PHOSPHORUS 3.7 mg/dL (2.6-4.7); POTASSIUM 4.3 mmol/L (3.5-5.1); SGOT 96 U/L (15-37); SGPT 46 U/L (16-63); SODIUM 137 mmol/L (136-145); TOTAL PROTEIN 9.1 g/dL (6.4-8.2)
[2021-01-04 03:32] LABS: CREATININE 0.8 mg/dL (0.7-1.3); SALICYLATE < 2.8 mg/dL (2.8-20.0)
[2021-01-04 04:45] LABS: APTT 33.3 Seconds (24.5-32.8); INR 1.59
[2021-01-04 05:29] VITALS: BP 115/71
[2021-01-04 06:20] LABS: URINE BLOOD NEGATIVE (Negative); URINE CLARITY CLEAR; URINE GLUCOSE-RANDOM* TRACE (Negative); URINE KETONES TRACE (Negative); URINE LEUKOCYTES-REFLEX NEGATIVE (Negative); URINE PROTEIN (DIPSTICK) 1+ (Negative); URINE SPECIFIC GRAVITY 1.015 (1.005-1.035); URINE UROBILINOGEN >= 8.0 E.U./dl (0.2-1.0)
[2021-01-04 06:29] LABS: AMP/METHAMP Negative (Negative); BARBITURATES Negative (Negative); BENZODIAZEPINES POSITIVE (Negative); COCAINE Negative (Negative); METHADONE Negative (Negative); OPIATES POSITIVE (Negative); PCP Negative (Negative); URINE NITRITE-REFLEX POSITIVE (Negative)
[2021-01-04 06:33] LABS: ICTOTEST (BILI CONFIRMATORY) Positive (Negative); URINE BILIRUBIN 1+ (Negative); URINE COLOR ORANGE
[2021-01-04 06:53] LABS: CASTS None Seen /LPF (None Seen); MUCUS >6 Heavy strn/LPF (None Seen); SQUAMOUS 0-3 Few /LPF (0-3)
[2021-01-04 06:54] LABS: BACTERIA-REFLEX 1-9 Few /HPF (None Seen); URINE RBC None Seen /HPF (NONE SEEN); URINE WBC-REFLEX 0-5 Rare /HPF (0-5)
[2021-01-04 06:56] LABS: CRYSTALS None Seen /LPF (None Seen)
--- NOTE | 2021-01-04 07:01 | EKG ---
[facility] [employer] [address] ELECTROCARDIOGRAM REPORT Name: ARTI BROWNING Room #: DEP Jose#: [id number] Admission: 01/04/21 Attend Phys: Discharge: 01/04/21 Date of : 76 Report #: [id number] [facility] ED Test Date: 2021-01-04 Test Time: 03:00:21 Pat Name: ARTI BROWNING Department: Room: Gender: M [employer] Department Chair: : 1980 Requested By: Jhon Li Order Number: [id number] MD: Cm Dougherty Measurements Intervals [place] Rate: 61 P: 30 MS: 141 QRS: -21 QRSD: 122 T: 15 QT: 436 QTc: 440 Interpretive Statements Sinus rhythm Left ventricular hypertrophy RBBB Compared to ECG 06/28/2020 21:57:29 Left ventricular hypertrophy now present T-wave abnormality now present ST (T wave) deviation no longer present Electronically Signed On 01-04-2021 7:01:06 CDT by Cm Dougherty [email or web address] <ELECTRONICALLY SIGNED> By: Cm Dougherty MD, [facility] 01/04/21 0701 9 9 Cm Dougherty MD, [facility]ACC /EPI
== END 2021-01-04 06:03 | disposition short-term general hospital (02) ==
LOC: ER 02:25
PROVIDERS: Emergency Medicine
DX: S06.5X9A Traumatic subdural hemorrhage with loss of consciousness of unspecified duration, initial encounter (principal); Z20.822 Contact with and (suspected) exposure to COVID-19; L29.9 Pruritus, unspecified; F10.10 Alcohol abuse, uncomplicated; K74.60 Unspecified cirrhosis of liver; Z79.899 Other long term (current) drug therapy; Z87.891 Personal history of nicotine dependence; W19.XXXA Unspecified fall, initial encounter; Y93.89 Activity, other specified; Y92.89 Other specified places as the place of occurrence of the external cause; Y99.8 Other external cause status